=== PATIENT | female | born 1975 | race Caucasian/White ===

== ENCOUNTER 2016-09-12 13:08 | Inpatient (IN) | payer OTHER ==
[~2016-09-12] VITALS: Ht 170.2 cm; Wt 79.5 kg
[2016-09-15] MEDS ORDERED: OXYTOCIN 30U/ 0.9% NaCL 500ML 500 ML IV PRN (05:38)
[2016-09-15] MEDS ORDERED: OXYTOCIN 30U/ 0.9% NaCL 500ML 500 ML IV ONE (05:38)
[2016-09-15] MEDS: D5%-LACTATED RINGERS 1,000 ML IV SCH ×3 (05:38→21:38)
[2016-09-15] MEDS ORDERED: CALCIUM CARBONATE 500 MG TAB.CHEW PO PRN ×2 (06:00→17:00)
[2016-09-15] MEDS ORDERED: ONDANSETRON 2MG/ML, 2ML IVPush PRN (06:00)
[2016-09-15] MEDS ORDERED: TERBUTALINE 1 MG/ML, 1ML IVPush PRN (06:00)
[2016-09-15] MEDS: LACTATED RINGERS 1,000 ML IV SCH ×3 (06:09→21:38)
[2016-09-15] MEDS ORDERED: MISOPROSTOL 200 MCG TABLET ONE (06:20)
[2016-09-15] MEDS ORDERED: LIDOCAINE 1%, 20ML ONE (06:20)
[2016-09-15] MEDS ORDERED: NEWBORN KIT ONE (06:20)
[2016-09-15] MEDS ORDERED: OXYTOCIN 30U/ 0.9% NaCL 500ML 500 ML ONE (06:20)
[2016-09-15] MEDS ORDERED: FENTANYL PF 100 MCG/2ML ONE ×2 (14:24→15:36)
[2016-09-15] MEDS: FENTANYL PF 100 MCG/2ML IVPush PRN ×2 (14:32→15:39)
[2016-09-15] MEDS: OXYTOCIN 30U/ 0.9% NaCL 500ML 500 ML IV SCH (16:47)
[2016-09-15] MEDS ORDERED: HYDROcodone/APAP 5/325 TABLET PO PRN (17:00)
[2016-09-15] MEDS ORDERED: METHYLERGONOVINE 0.2 MG/ML IM PRN (17:00)
[2016-09-15] MEDS ORDERED: CARBOPROST TROMETHAMINE 250 MCG/ML, 1ML IM PRN (17:00)
[2016-09-15] MEDS ORDERED: MISOPROSTOL 200 MCG TABLET PR PRN (17:00)
[2016-09-15] MEDS ORDERED: ONDANSETRON 2MG/ML, 2ML IV PRN (17:00)
[2016-09-15] MEDS ORDERED: DOCUSATE 100 MG CAPSULE PO PRN (17:00)
[2016-09-15] MEDS ORDERED: IBUPROFEN 600 MG TABLET ONE (17:02)
[2016-09-15] MEDS: IBUPROFEN 600 MG TABLET PO PRN ×2 (17:05→23:21)
[2016-09-15] MEDS ORDERED: OXYcodone/APAP 5/325MG TABLET ONE (18:05)
[2016-09-15] MEDS ORDERED: HYDROcodone/APAP 5/325 TABLET ONE (18:12)
[2016-09-15] MEDS: HYDROcodone/APAP 5/325 TABLET PO PRN (18:13)
[2016-09-15 18:30] VITALS: BP 112/73
[2016-09-16 01:15] VITALS: BP 99/64
[2016-09-16] MEDS: OXYTOCIN 30U/ 0.9% NaCL 500ML 500 ML IV SCH (02:47)
[2016-09-16] MEDS: HYDROcodone/APAP 5/325 TABLET PO PRN ×2 (04:18→14:54)
[2016-09-16 04:23] VITALS: BP 109/72
[2016-09-16] MEDS: D5%-LACTATED RINGERS 1,000 ML IV SCH (05:38)
[2016-09-16] MEDS: LACTATED RINGERS 1,000 ML IV SCH (05:38)
[2016-09-16 07:20] VITALS: BP 104/69
[2016-09-16] MEDS ORDERED: HYDR-3240 PO (08:16)
[2016-09-16] MEDS ORDERED: IBUP-1222 PO (08:16)
[2016-09-16] MEDS ORDERED: PRENATAL VIT/IRON/FA 1 EACH TABLET PO SCH (09:00)
[2016-09-16] MEDS: IBUPROFEN 600 MG TABLET PO PRN (10:50)
[2016-09-16 12:30] VITALS: BP 114/77
== END 2016-09-16 15:13 | disposition home or self-care (01) | DRG 775 ==
LOC: LDIP 09-15 05:20 → 2NW 09-15 18:39
PROVIDERS: ADMIT Obstetrics & Gynecology; ATTEND Obstetrics & Gynecology
PROC: 10E0XZZ Delivery of Products of Conception, External Approach (ICD-10-PCS; principal; 2016-09-15)
PROC: 10907ZC Drainage of Amniotic Fluid, Therapeutic from Products of Conception, Via Natural or Artificial Opening (ICD-10-PCS; 2016-09-15)
PROC: 3E033VJ Introduction of Other Hormone into Peripheral Vein, Percutaneous Approach (ICD-10-PCS; 2016-09-15)
DX: O32.6XX0 Maternal care for compound presentation, not applicable or unspecified (principal); O66.0 Obstructed labor due to shoulder dystocia; O48.0 Post-term pregnancy; O69.81X0 Labor and delivery complicated by cord around neck, without compression, not applicable or unspecified; Z37.0 Single live birth; Z3A.40 40 weeks gestation of pregnancy
CPT/HCPCS: 36415; 82803; 85025; 86850; 86900; J3010; J2590; J7120